=== PATIENT | female | born 1945 | race Caucasian/White ===

== ENCOUNTER 2024-11-04 10:15 | Outpatient (CLI) | payer MEDICARE, MEDICAID ==
[~2024-11-04 10:15] MED LIST: HYDR-3565 PO; LOSA-416 PO
[2024-11-04] MEDS ORDERED: ACET-1130 PO (11:48)
[2024-11-04] MEDS ORDERED: APIX5TAB3 PO (11:48)
[2024-11-04] MEDS ORDERED: DORZ10DR26 EACHEYE (11:48)
--- NOTE | 2024-11-04 11:54 | ELECTROCARDIOGRAPH REPORT ---
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 PRUDENCE Ryan Measurements Intervals Blum Rate: 88 P: 0 WY: 0 QRS: 58 QRSD: 103 T: 63 QT: 435 QTc: 527 Interpretive Statements Atrial fibrillation Anterior infarct, old Prolonged QT interval Electronically Signed On 11-04-2024 19:07:[address] PRUDENCE Ryan Please click the below link to view image of tracing.
[2024-11-04] MEDS ORDERED: BRIM10DR2 EACHEYE (11:55)
[2024-11-04] MEDS ORDERED: VIT C (11:55)
[2024-11-04] MEDS ORDERED: [UNRECOGNIZED DRUG - OTHER] (11:55)
[2024-11-04] MEDS ORDERED: NETA2.5D3 EACHEYE (11:55)
[2024-11-04] MEDS ORDERED: [UNRECOGNIZED DRUG - OTHER] (11:55)
[2024-11-04] MEDS ORDERED: VIT B COMPLEX (11:55)
[2024-11-04] MEDS ORDERED: MELATONIN (11:55)
[2024-11-04] MEDS ORDERED: CALCIUM (11:55)
[2024-11-04] MEDS ORDERED: MAGNESIUM (11:55)
[2024-11-04 12:05] LABS: LEUKOCYTE ESTERASE ,URINE TRACE (Neg); NITRITES, URINE NEGATIVE (Neg); OCCULT BLOOD,URINE NEGATIVE (Neg)
[2024-11-04 12:07] LABS: MEAN PLATELET VOLUME 8.9 FL (7.4-10.4); PRE OP HEMATOCRIT 48.7 % (35.0-45.0); PRE OP HEMOGLOBIN 16.6 g/dL (12.0-16.0); PRE OP PLATELET COUNT 261 X10'3 (140-440); PRE OP WHITE BLOOD COUNT 8.1 10'3 (4.8-10.8); RED CELL DISTRIBUTION WIDTH 15.2 % (11.5-14.5)
[2024-11-04 12:18] LABS: UA COLLECTION TYPE CLN CATCH MIDSTREAM
[2024-11-04 12:21] LABS: HYALINE CASTS 0-3 /LPF (NEGATIVE); PRE OP INR 1.0 INR; PRE OP PARTIAL THROMB. TIME 29.0 SECONDS (22-32); PRE OP PROTIME 10.5 SECONDS (9.0-12.0); SQUAMOUS EPITHELIAL CELL,UR FEW /LPF (FEW)
[2024-11-04 12:22] LABS: CAL OXALATE CRYSTALS 1+ /HPF (NEGATIVE)
[2024-11-04 12:34] LABS: CREATININE 0.69 MG/DL (0.40-0.90); PRE OP ALT 40 U/L (30-65); PRE OP ANION GAP 6 (8-16); PRE OP AST 24 U/L (10-37); PRE OP BILIRUB, TOTAL 0.6 MG/DL (0.0-1.0); PRE OP GLUCOSE 119 MG/DL (70-104); PRE OP POTASSIUM 4.1 MMOL/L (3.4-5.1); PRE OP SODIUM 138 MMOL/L (135-145); TOTAL CARBON DIOXIDE 32.0 MMOL/L (24-32); eGFR 82 ML/MIN
--- NOTE | 2024-11-04 14:08 | RADIOLOGY REPORT ---
DI CHEST,TWO VIEWS CLINICAL HISTORY: PREOP, pain COMPARISON: None TECHNIQUE: Frontal and lateral view of the chest was obtained FINDINGS: Lines and Tubes: None Lungs: No focal consolidation. Pleura: No effusion. No pneumothorax. Cardiomediastinal contours: Unremarkable Bones: No acute osseous abnormality. IMPRESSION: No acute cardiopulmonary disease.
== END 2024-11-04 23:59 | disposition home or self-care (01) ==
LOC: LAB 10:15 → EDSTATUS 11-12 12:30
PROVIDERS: ATTEND Student in an Organized Health Care Education/Training Program
DX: Z01.818 Encounter for other preprocedural examination (principal); I48.91 Unspecified atrial fibrillation; I25.2 Old myocardial infarction
CPT/HCPCS: 36415; 71046; 80053; 81001; 85025; 85610; 85730; 86885; 86900; 86901; 86920; 87088; 93005